=== PATIENT | female | born 1980 | race African-American/Black ===

== ENCOUNTER 2017-05-12 10:18 | Day surgery (SDC) | payer BC ==
[2017-05-06 12:49] VITALS: BMI 30.9
[~2017-05-12 10:18] MED LIST: CEFAZOLIN 2 GM/D5W 50 ML IVPB ONE
[2017-05-12] MEDS ORDERED: LIDOCAINE 1% P/F 10 MG/ML VIAL ONE (12:36)
[2017-05-12] MEDS ORDERED: methylPREDNISolone ACET (DEPO) 40 MG/1 ML VIAL ONE (13:21)
[2017-05-12] MEDS ORDERED: THROMBIN (BOVINE) 5,000 UNIT VIAL TP ONE (13:22)
[2017-05-12] MEDS ORDERED: LIDOCAINE 1%/EPI 1:100000 (20 ML MULTI DOSE VIAL) ONE (13:22)
[2017-05-12] MEDS ORDERED: BUPIVACAINE HCL/PF 2.5 MG/ML - 30 ML VIAL IJ ONE (13:22)
[2017-05-12] MEDS ORDERED: BUPIVACAINE HCL/PF 0.5% (5MG/ML) 10 ML VIAL ONE (13:31)
[2017-05-12] MEDS ORDERED: MIDAZOLAM HCL 2 MG/2 ML SINGLE DOSE VIAL ONE ×5 (13:32→15:12)
[2017-05-12] MEDS ORDERED: PROPOFOL 20 ML ONE (13:32)
--- NOTE | 2017-05-12 13:33 | HP ---
History & Physical Update - History History: No Change - Physical Physical: No Change - Assessment Assessment: No Change - Plan Plan: No Change
[2017-05-12] MEDS ORDERED: LIDOCAINE 1%/EPI 1:100000 (20 ML MULTI DOSE VIAL) IJ ONE (14:10)
[2017-05-12] MEDS ORDERED: BUPIVACAINE HCL 0.25% 125 MG/50 ML VIAL INF ONE (15:01)
[2017-05-12] MEDS ORDERED: methylPREDNISolone ACET (DEPO) 40 MG/1 ML VIAL IM ONE (15:01)
[2017-05-12] MEDS ORDERED: BUPIVACAINE 0.25% /EPI 1:200,000 10 ML VIAL INF ONE (15:01)
--- NOTE | 2017-05-12 15:51 | OP ---
Operative Note - Note: Operative Date: 05/12/17 Pre-Operative Diagnosis: spinal stenosis Operation: L4-L5 lumbar laminectomy with microdiscectomy Surgeon: Chris Ware Food As[employer] Kitchen: Sol Robles Anesthesiologist/SOLID SURFACE FABRICATOR: Mikhail Altamirano Anesthesia: Spinal Specimens Removed: L4-L5 disc Estimated Blood Loss (mls): 20 Fluid Volume Replaced (mls): 720 Operative Report Dictated: Yes
[2017-05-12] MEDS ORDERED: ONDANSETRON 4 MG/2 ML VIAL IVPUSH PRN (15:52)
[2017-05-12] MEDS ORDERED: PROMETHAZINE HCL 25 MG/1 ML VIAL IVPUSH PRN (15:52)
[2017-05-12] MEDS ORDERED: HYDROmorphone HCL 2 MG TABLET PO PRN (15:53)
--- NOTE | 2017-05-12 15:57 | SURG ---
Surgery Sheet Rock Layer Note Sheet Rock Layer: Sol Robles PA-C Date of Service: 05/12/17 Diagnosis: L4-L5 spinal stenosis, disc herniation Procedure: L4-L5 laminectomy with microdisectomy I was present for the entirety of the operative procedure. For further detail, please refer to operative report. Visit type - Case Type Case Type: Scheduled Admission - Emergency Emergency Visit: No - New patient This patient is new to me today: Yes Date on this admission: 05/12/17 - Critical Care Critical Care patient: No
--- NOTE | 2017-05-12 17:01 | OP ---
DATE OF OPERATION: 05/12/2017 PREOPERATIVE DIAGNOSIS: Spinal stenosis at L4-5. POSTOPERATIVE DIAGNOSIS: Spinal stenosis at L4-5. PROCEDURE PERFORMED: Laminectomy at L4-5. SURGEON: Chris Ware MD LEATHER SPLITTER: MAHOGANY Ramirez ESTIMATED BLOOD LOSS: 50 mL INTRAVENOUS FLUIDS: Per Anesthesia. COMPLICATIONS: None. DISPOSITION: The patient brought to the PACU in stable condition. ANESTHESIA: Spinal. INDICATIONS FOR SURGERY: The patient is a 36-year-old female who has been suffering from pain from her back down her leg. X-ray and MRI were completed which noted that she had a herniated disk at L4-5 with impingement upon her L5 nerve root. She had gone through an exhaustive course of treatment for this, which included medications, physical therapy, as well as injections. Unfortunately, her pain continued to persist despite all this. At this point, risks, benefits, and alternatives were discussed, and the patient consented to surgery. DESCRIPTION OF OPERATION: Patient was brought to the operating room by anesthesia staff. After appropriate patient identification was performed, spinal anesthesia was given. Appropriate anesthetic lines were placed. SCDs were placed on the patient. She was placed prone onto the Nadeem frame with all areas of bony prominences well padded at this time. Two needles were placed into her back to salvador off the L4 and L5 levels. X-rays taken to confirm this as correct. Delaplaine were removed and 10 mL of lidocaine with epinephrine were injected into her back at this time and her back was prepped and draped in a sterile manner. At this point, timeout was completed. An incision was made from the top of L4 down to the bottom of L5. Dissection was carried down to the fascia. Fascia was opened up at this time, and appropriate retractors were then placed in. A spinal needle was placed onto the L4 lamina to salvador off the L4-5 level. An x-ray was taken to confirm this as correct. The needle was removed. Microscope was brought in. At this point, the interspinous ligament at L4 and L5 was removed. A portion of the L4 and L5 spinous processes was removed. A portion of the L4 lamina was removed. The flavum was identified. It was removed. It was peeled off. The dural sac was retracted medially. The herniated disk was noted. Portion of the inferior-superior facets was removed to complete a foraminotomy. By the end of the procedure, the L5 nerve root appeared to be well decompressed. All bleeding was well controlled at this time. Steroid was placed over the nerve root. FloSeal was placed over that. The fascia was closed with a No. 1 Vicryl suture. The subcutaneous tissues were closed with 2-0 Vicryl suture. Skin was closed with 3-0 Monocryl suture. Dermabond was applied. Steri-Strips were applied. A sterile dressing was applied. Patient was placed supine on the OR bed and brought to the PACU in stable condition. Edward العلي/[id number]
[2017-05-12] MEDS ORDERED: HYDROmorphone HCL 2 MG TABLET ONE (17:26)
[2017-05-12 17:59] VITALS: BP 122/65; PULSE 71; TEMP 98
--- NOTE | 2017-05-17 16:14 | PATH ---
Surgical Pathology Report Patient Name: MICHAEL VELÁZQUEZ Med. Rec. #: [id number] /Age/Gender: 1980 (Age: 36) / F Account: [id number] Location: [facility] AMBULATORY Taken: 05/12/2017 Received: 05/12/2017 Reported: 05/17/2017 Physicians: Chris Ware M.D. Specimen(s) Received L4-5 DISC Clinical History Spinal stenosis Final Diagnosis DISC L4-5, LAMINECTOMY: CARTILAGE WITH DEGENERATIVE CHANGES. Electronically Signed Elodia García M.D. Gross Description Received in formalin labeled "L4-5 disc," is a 3.0 x 2.9 x 0.4 cm aggregate of hughes fragments of fibrocartilaginous tissue. A insurance claim representative portion is submitted in one cassette. 05/13/201705/13/2017
== END 2017-05-12 18:03 | disposition home or self-care (01) ==
LOC: FASU 10:18
PROVIDERS: ATTEND Orthopaedic Surgery Orthopaedic Surgery of the Spine
PROC: 01NB0ZZ Release Lumbar Nerve, Open Approach (ICD-10-PCS; principal; 2017-05-12 13:58)
DX: M48.06 Spinal stenosis, lumbar region (principal)
CPT/HCPCS: 72100-TC; 76000-TC; 84703; 88304-TC; 94760